=== PATIENT | female | born 1975 | race American Indian/Alaskan Native ===

== ENCOUNTER 2021-08-22 13:05 | Emergency (ER) | payer SELFPAY ==
--- NOTE | 2021-08-22 13:20 | Emergency Department Report ---
ED Head Trauma HPI - General Chief complaint: Head Injury Stated complaint: Head Injury Time Seen by Provider: 08/22/21 13:09 Source: patient Mode of arrival: Ambulatory Limitations: No Limitations - History of Present Illness Initial comments: Patient is a 46-year-old female presents emergency with complaints of left-sided facial pain that began 4 days ago. Patient reports that she was at work and that a belt from the conveyor belt hit her to the left side of the face. She states it was approximately 6 pounds. She states since then she has had left- sided facial pain. She denies any loss of consciousness, vomiting, vision changes, numbness, weakness, bowel or bladder incontinence. She denies any anticoagulant use. Past medical history of hypertension. Allergy to aspirin and Benadryl. - Related Data Previous Rx's Medication Instructions Recorded Last Taken Type Acetaminophen [Tylenol] 650 mg PO Q8HR PRN #20 capsule 08/22/21 Unknown Rx Allergies/Adverse reactions: Allergies Allergy/AdvReac Type Severity Reaction Status Date / Time aspirin Allergy Swelling Verified 08/22/21 13:09 diphenhydramine Allergy Swelling Verified 08/22/21 13:09 [From Benadryl] ED Review of Systems ROS: Stated complaint: Head Injury Other details as noted in HPI Comment: All other systems reviewed and negative ED Past Medical Hx - Medications Home Medications: Home Medications Medication Instructions Recorded Confirmed Last Taken Type Acetaminophen [Tylenol] 650 mg PO Q8HR PRN #20 capsule 08/22/21 Unknown Rx ED Physical Exam - General Limitations: No Limitations General appearance: alert, in no apparent distress - Head Head exam: Present: other (mild ttp to the lateral to the left periorbital region, no ecchymosis, no edema, no crepitus, no deformity) - Eye Eye exam: Present: PERRL, EOMI, other (no signs of entrapment, no racoon eyes). Absent: periorbital swelling, periorbital tenderness - ENT ENT exam: Present: mucous membranes moist, TM's normal bilaterally, normal external ear exam, other (no hemotypanum, no ferrell signs) - Respiratory Respiratory exam: Present: normal lung sounds bilaterally. Absent: respiratory distress, wheezes, rales, rhonchi, stridor, chest wall tenderness, accessory muscle use, decreased breath sounds, prolonged expiratory - Cardiovascular Cardiovascular Exam: Present: regular rate, normal rhythm, normal heart sounds. Absent: systolic murmur, diastolic murmur, rubs, gallop - Neurological Exam Neurological exam: Present: alert, oriented X3, CN II-XII intact, normal gait. Absent: motor sensory deficit - Psychiatric Psychiatric exam: Present: normal affect, normal mood - Skin Skin exam: Present: warm, dry, intact ED Course Vital Signs 08/22/21 08/22/21 13:06 13:55 Temperature 98.3 F 98.1 F Pulse Rate 71 74 Respiratory 16 16 Rate Blood Pressure 131/91 134/91 [Left] O2 Sat by Pulse 100 99 Oximetry - Medical Decision Making Patient is a 46-year-old female presents emergency with complaints of left-sided facial pain that began 4 days ago. Patient reports that she was at work and that a belt from the conveyor belt hit her to the left side of the face. She states it was approximately 6 pounds. She states since then she has had left- sided facial pain. She denies any loss of consciousness, vomiting, vision changes, numbness, weakness, bowel or bladder incontinence. She denies any anticoagulant use. Past medical history of hypertension. Allergy to aspirin and Benadryl. Vitals are stable. On exam:mild ttp to the lateral to the left periorbital region, no ecchymosis, no edema, no crepitus, no deformity, no hemotympanum, no ferrell signs, no raccoon eyes, no focal neuro deficits. [place] CT head rule is 0, CT had been doing is not recommended. Patient has no clinical signs of acute emergent traumatic injury. Patient given prescription for medication. Advised patient Please take medication as prescribed. May use ice for 15 minutes at a time but be sure that is wrapped in something. Follow-up with your primary care doctor for reexamination. Return to emergency room for any new or worse symptoms. Critical care attestation.: If time is entered above; I have spent that time in minutes in the direct care of this critically ill patient, excluding procedure time. ED Disposition Clinical Impression: Facial injury Qualifiers: Encounter type: initial encounter Qualified Code(s): S09.93XA - Unspecified injury of face, initial encounter Disposition: HOME / SELF CARE / HOMELESS Is pt being admited?: No Does the pt Need Aspirin: No Condition: Stable Instructions: Facial or Scalp Contusion Additional Instructions: Please take medication as prescribed. May use ice for 15 minutes at a time but be sure that is wrapped in something. Follow-up with your primary care doctor for reexamination. Return to emergency room for any new or worse symptoms. Prescriptions: Acetaminophen [Tylenol] 650 mg PO Q8HR PRN #20 capsule PRN Reason: pain Referrals: your, primary care doctor [Other] - 2-3 Days Forms: Work/School Release Form(ED) Time of Disposition: 13:18 Print Language: THAI
[2021-08-22 14:03] VITALS: BP 134/91
== END 2021-08-22 14:08 | disposition home or self-care (01) ==
LOC: ED 13:05
DX: S09.93XA Unspecified injury of face, initial encounter (principal); W22.8XXA Striking against or struck by other objects, initial encounter; Y93.89 Activity, other specified; Y92.89 Other specified places as the place of occurrence of the external cause; Y99.0 Civilian activity done for income or pay; Z88.8 Allergy status to other drugs, medicaments and biological substances
CPT/HCPCS: 99282